=== PATIENT | male | born 1945 | race Caucasian/White ===

== ENCOUNTER → 2017-06-23 | Outpatient (CLI) | payer OTHER ==
[2017-06-23 13:21] LABS: BARBITURATE NEGATIVE (NEGATIVE)
[2017-06-23 13:30] LABS: AMPHETAMINE NEGATIVE (NEGATIVE); COCAINE NEGATIVE (NEGATIVE); OPIATES POSITIVE (NEGATIVE)
== END | disposition disaster alternative care site (69) ==
LOC: GLAB 12:00
PROVIDERS: Orthopaedic Surgery
DX: G89.29 Other chronic pain (principal)